=== PATIENT | female | born 1965 | race Caucasian/White ===

== ENCOUNTER → 2019-12-30 | Outpatient (CLI) | payer OTHER ==
[~2019-12-30] MED LIST: ARIP1TAB PO; LORA1TAB4 PO; LORA2CON5 PO; NAPR-832 PO
== END ==
LOC: M PLARAD 14:54
PROVIDERS: ATTEND Physician Assistant
DX: Z53.9 Procedure and treatment not carried out, unspecified reason (principal); C80.1 Malignant (primary) neoplasm, unspecified

== ENCOUNTER → 2020-01-09 | Outpatient (CLI) | payer OTHER ==
[~2020-01-09] MED LIST changes: +DEXA4TA PO; +LIDOCAINE 1% MDV 20ML VIAL As Ordered ONE; +MULT-90 PO; +ONDA8TAB10 PO; +PROC10TA4 PO; +SODIUM BICARBONATE 8.4% INJ 50MEQ 50 ML VIAL As Ordered ONE
--- NOTE | 2020-01-09 13:06 | REP ---
INDICATION: LT BREAST MASS/AXILLA. Targeted left breast sonography and left axillary sonography: History: Left breast mass. Lump in the axilla. COMPARISON: None. FINDINGS: Scanning over the area of the palpable lump at 1 o'clock in the left breast demonstrates a 2.4 x 1.8 x 3.3 cm heterogeneously hypoechoic spiculated mass with its long axis parallel to the skin. There is associated acoustic shadowing. The lesion is suspicious. Left axillary ultrasound shows multiple hypoechoic lymph nodes. The largest of these is 2.0 x 0.9 x 1.7 cm in diameter. This lymph node appears to have thickened heterogeneous cortical margin and is considered suspicious. The left breast mass corresponding to the palpable abnormality and the largest axillary lymph node will be sampled histologically using ultrasound-guided needle biopsy technique. IMPRESSION: BI-RADS category 5 highly suspicious left breast ultrasound. This spiculated mass corresponds to the palpable abnormality at 1 o'clock in left breast. There is at least 1 at suspicious enlarged lymph node in the left axilla. Needle biopsy of these 2 targets pending. <Electronically signed by Donald Curtis > 01/09/20 [id number]
[2020-01-09 13:34] LABS: SOURCE, BODY FLUID ALBUMIN ASCITES; SOURCE, BODY FLUID TOT PROTEIN ASCITES; TOTAL PROTEIN, BODY FLUID 4.2 G/DL (NOT ESTABLISHED)
[2020-01-09 14:40] VITALS: BP 143/79
--- NOTE | 2020-01-09 17:15 | REP ---
INDICATION: MASSIVE ASCITES,PALPABLE MASS LT BREAST/AXILLA COMPARISON: None. TECHNIQUE: The procedure was performed by LEONORA Worthington, under the direct supervision of Dr. Curtis The risks and benefits of the procedure were explained to the patient and an informed consent was obtained both verbally and written. Directly prior to the start of the procedure a formal time-out was completed in the procedure room. The largest pocket of fluid was localized in the right flank using ultrasound guidance. The skin was prepped and draped in a sterile fashion. Eleven ML of buffered lidocaine was used as a local anesthetic. An 8-Romansh multi side-hole catheter was inserted using trocar technique. FINDINGS: 10,000 mL of yellow green ascites fluid was removed. 200 mL was sent to the lab for further analysis, and the rest was discarded. The patient tolerated the procedure well and there were no immediate complications. After the appropriate amount of monitored convalescence, the patient was discharged from the department. IMPRESSION: 1. Successful ultrasound-guided paracentesis. <Electronically signed by Donald Curtis > 01/09/20 [id number]
--- NOTE | 2020-01-09 17:26 | REP ---
INDICATION: LT BREAST MASS. COMPARISON: None TECHNIQUE: The procedure was performed by LEONORA Worthington, under the direct supervision of Dr. Curtis. The risks and benefits of the procedure were explained to the patient and an informed consent was obtained both verbally and written. Directly prior to the start of procedure a formal time-out was completed in the procedure room. FINDINGS: The palpable left breast mass was localized using ultrasound guidance. The skin was prepped and draped in a sterile fashion. Approximately 20 mL of buffered lidocaine was used as a local anesthetic. Using ultrasound guidance a 13 gauge suction assisted mammotome needle was inserted and advanced into the mass. Multiple attempts were made to obtain core biopsies with this device. Possibly due to the density of the mass no samples were able to be obtained with the vacuum assisted mammotome device. The needle was removed and exchanged with a 14 gauge Bergey'squee biopsy system. Six core biopsy specimens were obtained, placed in formalin, and sent to the laboratory for further analysis. A marker clip was placed at the biopsy site. The patient tolerated the procedure well and there were no immediate complications. After the appropriate amount of monitored convalescence the patient was discharged from the department. IMPRESSION: 1. Successful core biopsy sampling of palpable left breast mass. RECOMMENDATION: None <Electronically signed by Donald Curtis > 01/09/20 [id number]
--- NOTE | 2020-01-09 17:28 | REP ---
INDICATION: LT AXILLA BX. COMPARISON: None. TECHNIQUE: The procedure was performed by LEONORA Worthington, under the direct supervision of Dr. Curtis. The risks and benefits of the procedure were explained to the patient and an informed consent was obtained both verbally and written. Directly prior to the start of the procedure a formal time-out was completed in the procedure room. FINDINGS: Using ultrasound guidance the left axilla lymph node was localized. The skin was prepped and draped in a sterile fashion. Six mL of buffered lidocaine was used as a local anesthetic. Using ultrasound guidance a 17/18 gauge coaxial needle biopsy system was inserted and advanced into the lymph node. Five core biopsy specimens were obtained. Three specimens were sent to our lab here, and remaining 2 were sent out in RPMI solution, for further testing The patient tolerated the procedure well and there were no immediate complications. After the appropriate amount of monitored convalescence the patient was discharged from the department. IMPRESSION: 1. Successful ultrasound-guided left axilla lymph node biopsy. <Electronically signed by Donald Curtis > 01/09/20 [id number]
== END ==
LOC: M IRPRO 11:31
PROVIDERS: ATTEND Specialist
DX: C77.3 Secondary and unspecified malignant neoplasm of axilla and upper limb lymph nodes (principal); C50.912 Malignant neoplasm of unspecified site of left female breast; R18.8 Other ascites; N63.21 Unspecified lump in the left breast, upper outer quadrant

== ENCOUNTER → 2020-01-30 | Outpatient (CLI) | payer OTHER ==
[~2020-01-30] MED LIST changes: -LIDOCAINE 1% MDV 20ML VIAL As Ordered ONE; -SODIUM BICARBONATE 8.4% INJ 50MEQ 50 ML VIAL As Ordered ONE
[2020-01-30 14:55] VITALS: BP 126/73
--- NOTE | 2020-01-30 17:51 | REP ---
INDICATION: THERAPEUTIC PARACENTESIS. COMPARISON: None. TECHNIQUE: The procedure was performed under the direct supervision of Dr. Hays. The risks and benefits of the procedure were explained to the patient and informed consent was obtained. The risks and benefits of the procedure were explained to the patient and informed consent was obtained. The largest pocket of fluid was localized in the right flank using ultrasound guidance. The skin was prepped and draped in a sterile fashion. 1% lidocaine was used as a local anesthetic. Using ultrasound guidance, an 8-Yoruba multi side-hole catheter was inserted using trocar technique. 6000 cc of yellow fluid was withdrawn and discarded. The patient tolerated the procedure well and there were no immediate complications. After the appropriate amount of monitored convalescence, the patient was discharged from the department. FINDINGS: None IMPRESSION: Ultrasound-guided paracentesis yielding 6000 cc of yellow fluid. <Electronically signed by Italo Chavarria > 01/30/20 [id number] <Electronically signed by Jas Hays > 01/30/20 [id number]
== END ==
LOC: M IRPRO 12:36
PROVIDERS: ATTEND Specialist
DX: R18.8 Other ascites (principal); C50.912 Malignant neoplasm of unspecified site of left female breast; Z17.0 Estrogen receptor positive status [ER+]; C78.7 Secondary malignant neoplasm of liver and intrahepatic bile duct; C79.51 Secondary malignant neoplasm of bone; Z87.891 Personal history of nicotine dependence; Z88.8 Allergy status to other drugs, medicaments and biological substances; Z91.013 Allergy to seafood

== ENCOUNTER → 2020-02-02 | Outpatient (CLI) | payer OTHER ==
--- NOTE | 2020-02-03 13:29 | ECHO ---
DATE OF PROCEDURE: 02/02/2020 Age: 54 Gender: Female Height: 165 cm Weight: 81 kg REFERRING PHYSICIAN: Keith Lechuga MD. INDICATION: Chemotherapy drugs that may affect the heart. MEASUREMENTS: 2D Measurements: Interventricular septum 0.57 cm Posterior wall 0.95 cm Left ventricle diastole 5.2 cm Aortic root 3.1 cm Left atrium 3.0 cm Left atrial volume index 24 cm Inferior vena cava 1.5 cm Doppler Measurements: No aortic stenosis No aortic regurgitation LVOT velocity 104 cm/s Trace mitral regurgitation Mitral E velocity 50.3 cm/s Mitral A velocity 62.2 cm/s Trace tricuspid regurgitation within normal limits Trace pulmonic regurgitation. Pulmonary artery acceleration time 150 m/s Estimated right ventricular systolic pressure 24-29 mmHg MITRAL ANNULAR TISSUE DOPPLER E prime septal 10.6 cm/s, E prime lateral 12.4 cm/s DESCRIPTION: Rhythm was sinus. Image quality was good. This was a 2D, M-mode, color flow Doppler, and pulsed wave Doppler examination including mitral annular tissue Doppler. No pericardial effusion. CONCLUSIONS: 1. Normal left ventricle internal dimensions and wall thickness. Normal regional left ventricular (LV) wall motion and wall thickening. Normal left ventricular (LV) systolic function. Left ventricular ejection fraction (LVEF) 65% by visual estimate. Normal left ventricular (LV) diastolic function. Normal peak systolic longitudinal strain. 2. No pericardial effusion. 3. Normal echocardiogram Doppler. MTDD
== END ==
LOC: M CARPUL 13:50
PROVIDERS: ATTEND Specialist
DX: C50.919 Malignant neoplasm of unspecified site of unspecified female breast (principal); Z92.21 Personal history of antineoplastic chemotherapy

== ENCOUNTER → 2020-02-05 | Outpatient (CLI) | payer OTHER ==
[~2020-02-05] MED LIST changes: +LIDOCAINE 1% MDV 20ML VIAL As Ordered ONE; +MIDAZOLAM INJ 2MG/2ML VIAL (J2250 PER 1MG) As Ordered ONE; +PROMETHAZINE INJ 25 MG/ML VIAL (J2550) As Ordered ONE; +ceFAZolin 2 GM/D5W 50 ML IV BAG (J0690 PER 500MG) As Ordered ONE; +diphenhydrAMINE 50MG/ML VIAL (J1200) As Ordered ONE; +fentaNYL 100 MCG/2 ML INJECTION (J3010) As Ordered ONE
--- NOTE | 2020-02-05 12:31 | POST-OPPD ---
Postoperative Procedure Note Date Of Procedure: Feb 05, 2020 Time Of Procedure: 12:29 IR ultrasound and fluoroscopy guided port placement IR Ultrasound of the neck. IR Moderate sedation. Clinical indication: Left-sided breast cancer. Port for chemotherapy. Physician: Dr. Webber. Procedure: The patient was advised of the benefits, risks, and alternatives of the procedure and informed consent was obtained. A time-out was performed with verification of the patient's name, MRN, site of procedure and type of procedure to be performed. The patient was positioned in the supine position on the angiographic table. The site was prepped and draped in the usual sterile fashion. Moderate sedation was performed by the physician including the presence of an independent trained RN who assisted and monitored the patient's level of consciousness and physiologic status. Following the administration of fentanyl and Versed , the physician spent 45 minutes of continuous face to face time with the patient. Ultrasound of the neck reveals a patent and compressible right internal jugular vein. A biofuels research scientist radiograph reveals no gross abnormality. The neck and anterior chest wall were anesthetized with lidocaine. The right internal jugular vein was accessed using a microintroducer needle under ultrasound guidance, via a lateral approach. An 018 wire was advanced into the superior vena cava, the needle was removed and a microsheath was placed. An Amplatz wire was then passed into the inferior vena cava. An incision at the internal jugular vein access site and anterior chest wall were made using a scalpel. An incision was made at the anterior chest wall. A small pocket was created using a combination of blunt and sharp dissection. A tunneling device was then used to pass the catheter from the pocket to the neck puncture site. An 8- Spanish [employer] Smart power port was then positioned in the pocket. The catheter was then measured and cut. The introducer sheath was exchanged for a peel-away sheath. The catheter was passed through the peel-away sheath into the internal jugular vein and the peel-away sheath was removed. The port tip was positioned at the cavoatrial junction. The port was then accessed with a Arrington needle. The port flushes and aspirates well. The puncture site in the neck was closed. The chest wall incision was then closed with 2-0 Vicryl and 4-0 Monocryl. Glue and Steri- Strips were applied. A sterile dressing was then applied. The patient tolerated the procedure well and was returned to the PRU in stable condition. Estimated blood loss: <5 ml. Complications: None. Conclusion: 1. Successful placement of an 8-Spanish [employer] Smart power port via the right internal jugular vein. The port is ready for immediate use. 2. Patient to follow up in IR clinic in 2 weeks. Thank you for this referral. CESAR WEBBER MD Feb 05, 2020 12:31
[2020-02-05 14:00] VITALS: BP 99/58
== END ==
LOC: M IRPRO 09:27
PROVIDERS: ATTEND Specialist
DX: C50.912 Malignant neoplasm of unspecified site of left female breast (principal); C79.51 Secondary malignant neoplasm of bone; C78.7 Secondary malignant neoplasm of liver and intrahepatic bile duct; Z79.899 Other long term (current) drug therapy; Z88.8 Allergy status to other drugs, medicaments and biological substances; Z91.013 Allergy to seafood
CPT/HCPCS: 36561; 99152; 99153; C1769; C1788; C1894; J0690; J1200; J1642; J1644; J2250; J3010

== ENCOUNTER → 2020-02-24 | Outpatient (POV) | payer OTHER ==
[~2020-02-24] MED LIST changes: -LIDOCAINE 1% MDV 20ML VIAL As Ordered ONE; -MIDAZOLAM INJ 2MG/2ML VIAL (J2250 PER 1MG) As Ordered ONE; -PROMETHAZINE INJ 25 MG/ML VIAL (J2550) As Ordered ONE; -ceFAZolin 2 GM/D5W 50 ML IV BAG (J0690 PER 500MG) As Ordered ONE; -diphenhydrAMINE 50MG/ML VIAL (J1200) As Ordered ONE; -fentaNYL 100 MCG/2 ML INJECTION (J3010) As Ordered ONE
--- NOTE | 2020-02-25 16:22 | IRPN ---
[facility] IR Progress Note IR Progress Note DATE: Feb 24, 2020 Patient missed this telephone follow-up as she went to get chemotherapy. Mother states no issues with the port. No further follow-up scheduled unless initiated by treatment center and/or the patient. Thank you for this referral Allergies Coded Allergies: SEAFOOD (Verified Allergy, Severe, 01/06/20) cyclobenzaprine (Verified Adverse Reaction, Intermediate, HYPERSENSITIVE- LOOPY, 01/26/20) CESAR PINZON MD Feb 25, 2020 16:22
== END ==
LOC: M TMIRPOV 09:04
PROVIDERS: ATTEND Radiology Diagnostic Radiology
DX: Z45.2 Encounter for adjustment and management of vascular access device (principal)